=== PATIENT | female | born 1990 | race African-American/Black ===

== ENCOUNTER 2019-09-03 07:23 | Emergency (ER) | payer MEDICAID ==
[~2019-09-03] VITALS: Ht 165.1 cm; Wt 77.0 kg
[2019-09-03] MEDS ORDERED: ONDANSETRON HCL 4MG/2ML INJ IV STA (07:48)
[2019-09-03] MEDS ORDERED: MORPHINE SULFATE 4 MG/ML CPJ (NOT FOR IM USE) IV STA (07:48)
[2019-09-03] MEDS ORDERED: SODIUM CHLORIDE 0.9% 1,000 ML IV ONE (07:48)
[2019-09-03 08:21] LABS: HEMATOCRIT. 45.3 % (36.0-48.0); HEMOGLOBIN. 14.6 g/dL (12.0-16.0); MEAN CORPUSCULAR VOLUME 84.1 fL (81.0-99.0); MEAN PLATELET VOLUME 9.4 fl (7.4-10.4); PLATELET 220 x1000/uL (130-400); RED BLOOD CELL COUNT 5.39 mill/uL (4.2-5.4); RED CELL DISTRIBUTION WIDTH 15.7 % (11.6-14.6)
[2019-09-03 08:29] LABS: PROTHROMBIN TIME 10.1 sec (9.6-11.0)
[2019-09-03 08:30] LABS: CHLORIDE 108 mEq/L (98-107)
[2019-09-03 08:49] LABS: PLATELET ESTIMATE NORMAL
[2019-09-03] MEDS ORDERED: ONDANSETRON HCL 4MG/2ML INJ IV ONE (09:30)
[2019-09-03 10:28] LABS: HCG SCREEN NEGATIVE
[2019-09-03 10:34] LABS: CLARITY URINE CLEAR (CLEAR); COLOR URINE ORANGE (YELLOW); KETONES URINE NEGATIVE (NEGATIVE); LEUKOCYTE ESTERASE URINE NEGATIVE (NEGATIVE); NITRITE URINE NEGATIVE (NEGATIVE); OCCULT BLOOD URINE 2+ (NEGATIVE); PROTEIN URINE NEGATIVE (NEGATIVE); SPECIFIC GRAVITY URINE 1.018 (1.005-1.030); UROBILINOGEN URINE 0.2 E.U./dL (0.2-1.0)
[2019-09-03] MEDS ORDERED: METOCLOPRAMIDE HCL 10MG/2ML VIAL IV ONE (10:45)
[2019-09-03 11:25] VITALS: BP 93/75
== END 2019-09-03 11:28 | disposition home or self-care (01) ==
LOC: ER 07:23
DX: R11.2 Nausea with vomiting, unspecified (principal); R19.7 Diarrhea, unspecified; R10.9 Unspecified abdominal pain
CPT/HCPCS: 36415; 74176; 80053; 81003; 81025; 83690; 84703; 85025; 85610; 96361; 96374; 96375; 96376; 99284; J2270; J2405; J2765; J7030; Z7610